=== PATIENT | male | born 1955 | race Caucasian/White ===

== ENCOUNTER 2018-04-12 13:13 | Emergency (ER) | payer OTHER ==
[2018-04-12 13:14] VITALS: BMI 25.8
[2018-04-12 13:24] VITALS: RESP 19
--- NOTE | 2018-04-12 14:00 | ED PDOC ---
Arrival/HPI - General Chief Complaint: Trauma Time Seen by Provider: 04/12/18 13:22 - History of Present Illness Narrative History of Present Illness (Text): 04/12/18 13:52 Patient is a 62 year old male with PMH of diabetes, hypertension, hyperlipidemia who presents to the Emergency department after a fall. Patient says he was walking outside and slipped on the sidewalk because it was wet from the rain. Patient fell onto his right side, hitting his head and injuring his eye. Patient says his eye was bleeding a lot before arrival although it is no longer bleeding. Patient denies loss of vision, headache, dizziness, and ringing in ears. He also denies pain in his neck, back, and extremities. PMH: diabetes, hypertension, hyperlipidemia Meds: Metformin, protonix, metoprolol, jardiance, ASA, atorvastatin Allergies: NKDA SH: former smoker, social alcohol use, denies elicit drug use Past Medical History - Past History Past History: Non-Contributing - Infectious Disease Hx of Infectious Diseases: None - Cardiac Hx Hypertension: Yes - Endocrine/Metabolic Hx Diabetes Mellitus Type 2: Yes - Psychiatric Hx Depression: No Hx Emotional Abuse: No Hx Physical Abuse: No Hx Substance Use: No - Past Surgical History Past Surgical History: No Previous - Surgical History Hx Cataract Extraction: Yes - Anesthesia Hx Anesthesia: Yes Hx Anesthesia Reactions: No Hx Malignant Hyperthermia: No - Suicidal Assessment Feels Threatened In Home Enviroment: No Family/Social History Family/Social History: Unknown Family HX Smoking Status: Never Smoked Hx Alcohol Use: Yes Frequency of alcohol use: Socially Hx Substance Use: No Allergies/Home Meds Allergies/Adverse Reactions: Allergies No Known Allergies Allergy (Verified 06/27/13 23:42) Home Medications: Home Meds Medication Instructions Recorded Confirmed Metformin HCl [Metformin] 1,000 mg PO BID 06/27/13 04/12/18 Review of Systems - Physician Review All systems were reviewed & negative as marked: Yes - Review of Systems Constitutional: Normal Eyes: Eye Pain (right, mild). absent: Vision Changes, Photophobia ENT: Normal. absent: Hearing Changes, Tinnitus, Epistaxis Respiratory: Normal. absent: SOB, Wheezing Cardiovascular: Normal. absent: Chest Pain, Palpitations, Syncope Gastrointestinal: Normal. absent: Abdominal Pain, Constipation, Diarrhea, Nausea, Vomiting Musculoskeletal: absent: Arthralgias, Back Pain, Neck Pain, Joint Swelling Skin: Laceration (1 cm, over right eye) Neurological: Normal. absent: Headache, Dizziness, Gait Changes, Speech Changes , Facial Droop, Disequilibrium Physical Exam Vital Signs Temp Pulse Resp BP Pulse Ox 04/12/18 13:15 98.8 F 95 H 19 129/87 98 Temperature: Afebrile Blood Pressure: Normal Pulse: Regular Respiratory Rate: Normal Appearance: Positive for: Well-Appearing, Non-Toxic, Comfortable Pain Distress: Mild Mental Status: Positive for: Alert and Oriented X 3 - Systems Exam Head: Present: Normocephalic, Tenderness (right eye), Swelling (right eye), Ecchymosis (mild over right eye), Laceration (1 cm, over the right eye) Pupils: Present: PERRL Extroacular Muscles: Present: EOMI. No: Entrapment Conjunctiva: Present: Other (subconjunctival hemorrhage of the right eye) Ears: Present: Normal Mouth: Present: Moist Mucous Membranes Nose (External): Present: Atraumatic Nose (Internal): Present: No Active Bleeding Neck: Present: Normal Range of Motion. No: MIDLINE TENDERNESS, Paraspinal Tenderness Respiratory/Chest: Present: Clear to Auscultation, Good Air Exchange. No: Respiratory Distress, Accessory Muscle Use Cardiovascular: Present: Regular Rate and Rhythm, Normal S1, S2. No: Murmurs Abdomen: Present: Normal Bowel Sounds. No: Tenderness, Distention, Peritoneal Signs Back: Present: Normal Inspection. No: Midline Tenderness, Paraspinal Tenderness , Pain with Leg Raise Upper Extremity: Present: Normal Inspection, Neurovascularly Intact. No: Cyanosis, Edema Lower Extremity: Present: Normal Inspection, Neurovascularly Intact. No: Edema Neurological: Present: GCS=15, CN II-XII Intact, Speech Normal Skin: Present: Warm, Dry. No: Rashes Psychiatric: Present: Alert, Oriented x 3, Normal Insight, Normal Concentration Medical Decision Making ED Course and Treatment: 04/12/18 14:08 Patient given toradol for pain and CT head with maxillofacial CT ordered 04/12/18 14:46 CT Head: Findings: No acute intracranial hemorrhage. Mild chronic white matter ischemic changes. . The questionable few scattered chronic bilateral basal nuclei lacunar type infarcts. Moderate volume loss. Right-sided sided orbital fractures with right-sided facial swelling an subcutaneous as well as orbital emphysema as detailed above. Maxillofacial CT: Fracture of the right lamina papyracea with collapse of several right-sided ethmoid air cells that are partially filled with soft tissue possibly representing hemorrhage. There is also small amount of herniation of orbital fat medially through the defect. Suspect minimally displaced fracture right lateral orbital wall. Right-sided facial soft tissue swelling including the periorbital, supraorbital and pre maxillary soft tissues. There is also some extension of the swelling over the right temporal region. Subcutaneous and orbital emphysema present. Globes intact . Patient is status post bilateral cataract surgery. There are no retrobulbar hemorrhages or collections so far as can be seen. Patient will need follow up with and opthalmologist and ENT. Patient cautioned not to blow nose as to avoid further emphysema. - RAD Interpretation Radiology Orders: 04/12/18 13:42 HEAD W/O CONTRAST [CT] Stat MAXILLOFACIAL W/O CONTRAST [CT] Stat - Medication Orders Current Medication Orders: Discontinued Medications Ketorolac Tromethamine (Toradol) 60 mg IM STAT STA Stop: 04/12/18 13:43 Last Admin: 04/12/18 13:52 Dose: 60 mg MAR Pain Assessment Document 04/12/18 13:52 GMI (Rec: 04/12/18 13:53 GMI [id number]) Pain Reassessment Is this a pain reassessment? Yes Sleep Is patient sleeping during reassessment? No Presence of Pain Presence of Pain Yes Pain Scale Used Pain Scale Used Numeric Location Left, Right or Bilateral Right Pain Location Body Site Eye Description Description Intermittent Intensity of Pain at present 5 Pain Behavior Facial Grimacing Alleviating Factors/Management Medication Techniques Alleviating Factors Ice IM Administration Charges Document 04/12/18 13:52 GMI (Rec: 04/12/18 13:53 GMI [id number]) Injection Site MAR Injection Site Right Deltoid Charges for Administration # of IM Administrations 1 - PA / SENIOR [employer] ADMINISTRATOR / Resident Statement / has reviewed & agrees with the documentation as recorded. / has examined the patient and agrees with the treatment plan. Disposition/Present on Arrival - Present on Arrival Any Indicators Present on Arrival: No History of DVT/PE: No History of Uncontrolled Diabetes: No Urinary Catheter: No History of Decub. Ulcer: No History Surgical Site Infection Following: None - Disposition Have Diagnosis and Disposition been Completed?: Yes Diagnosis: Orbital fracture, Orbital floor (blow-out) closed fracture Disposition: HOME/ ROUTINE Disposition Time: 15:10 Condition: STABLE Discharge Instructions (ExitCare): Skull and Facial Fractures Additional Instructions: Please follow up with your primary care provider in 1-2 days for further coordination of your care. You will need follow up with an pre school teacher and ENT. Please take Augmentin by mouth twice a day for 14 days. You may take percocet every 4 hours only as needed for severe pain. This occasionally causes nausea in some patients, which is why we have provided you with zofran and this can be taken every 6 hours as needed for nausea. Please return to the Emergency department if you experience any new or worsening symptoms. Prescriptions: Amoxicillin/Clavulanate [Augmentin 875 MG-125 MG] 1 tab PO BID 14 Days #28 tab Ondansetron HCl [Zofran] 4 mg PO Q6 PRN #10 tablet PRN Reason: Nausea/Vomiting oxyCODONE/Acetaminophen [Percocet 5/325 mg Tab] 1 tab PO Q4 PRN #20 tab PRN Reason: Pain, Severe (8-10) Referrals: Kenny Tong MD [Primary Care Provider] - Follow up with primary Twin Aj MD [Staff Provider] - Follow up with primary Isauro Scott DO [Staff Provider] - Follow up with primary Forms: [employer] (Kinyarwanda)
--- NOTE | 2018-04-12 14:40 | CT ---
PROCEDURE: CT scan brain dated 04/12/2018 HISTORY: Status post fall with trauma COMPARISON: Correlation made with concurrent CT scan of the maxillofacial skeleton. TECHNIQUE: Contiguous helical/ transaxial computed tomography images were obtained through the head/brain without intravenous contrast. Radiation dose: Total exam DLP = 856.54 mGy-cm. This CT exam was performed using one or more of the following dose reduction techniques: Automated exposure control, adjustment of the mA and/or kV according to patient size, and/or use of iterative reconstruction technique. . FINDINGS: HEMORRHAGE: No acute parenchymal, subarachnoid or extra-axial hemorrhage. BRAIN: Mild chronic periventricular white matter ischemic changes are present. The questionable few scattered chronic bilateral basal nuclei lacunar type infarcts. Moderate generalized volume loss. Vascular calcifications both carotid siphons. VENTRICLES: No obstructive hydrocephalus CALVARIUM: There are no acute calvarial fractures. There is a fracture of the right lamina papyracea with collapse of several right-sided ethmoid air cells that are partially filled with soft tissue possibly representing hemorrhage. There is also small amount of herniation of orbital fat medially through the defect. Right-sided facial soft tissue swelling including the periorbital, supraorbital and pre maxillary soft tissues. There is also some extension of the swelling over the right temporal region. Subcutaneous and orbital emphysema present. Globes intact . Patient is status post bilateral cataract surgery. There are no retrobulbar hemorrhages or collections so far as can be seen. PARANASAL SINUSES: As above. There is mild polypoid like mucosal thickening both maxillary antra. MASTOID AIR CELLS: Questionable incomplete pneumatization or partial opacification multiple right-sided inferior mastoid air cells. OTHER FINDINGS: No other findings. IMPRESSION: No acute intracranial hemorrhage. Mild chronic white matter ischemic changes. . The questionable few scattered chronic bilateral basal nuclei lacunar type infarcts. Moderate volume loss. Right-sided sided orbital fractures with right-sided facial swelling an subcutaneous as well as orbital emphysema as detailed above. .
--- NOTE | 2018-04-12 15:01 | CT ---
PROCEDURE: Maxillofacial skeleton dated 04/12/2018 HISTORY: Status post fall with trauma. COMPARISON: Comparison made with concurrent CT scan brain TECHNIQUE: Contiguous helical/transaxial CT images of the maxillofacial bones were obtained. Coronal and sagittal reformats were generated. Radiation dose: Total exam DLP = 673.47 mGy-cm. This CT exam was performed using one or more of the following dose reduction techniques: Automated exposure control, adjustment of the mA and/or kV according to patient size, and/or use of iterative reconstruction technique. . FINDINGS: There is a fracture of the right lamina papyracea with collapse of several right-sided ethmoid air cells that are partially filled with soft tissue possibly representing hemorrhage. There is also small amount of herniation of orbital fat medially through the defect. Suspect minimally displaced fracture right lateral orbital wall. Right-sided facial soft tissue swelling including the periorbital, supraorbital and pre maxillary soft tissues. There is also some extension of the swelling over the right temporal region. Subcutaneous and orbital emphysema present. Globes intact . Patient is status post bilateral cataract surgery. There are no retrobulbar hemorrhages or collections so far as can be seen. The remaining visualized paranasal sinuses are well-developed. No fluid levels seen to suggest acute hemorrhage. There is mild polypoid like mucosal thickening both maxillary antra. . Mild mucosal thickening also seen in a few left-sided ethmoid air cells. Note is made of a radicular cyst surrounding the roof of the right inferior central incisor tooth IMPRESSION: fracture of the right lamina papyracea with collapse of several right-sided ethmoid air cells that are partially filled with soft tissue possibly representing hemorrhage. There is also small amount of herniation of orbital fat medially through the defect. Suspect minimally displaced fracture right lateral orbital wall. Right-sided facial soft tissue swelling including the periorbital, supraorbital and pre maxillary soft tissues. There is also some extension of the swelling over the right temporal region. Subcutaneous and orbital emphysema present. Globes intact . Patient is status post bilateral cataract surgery. There are no retrobulbar hemorrhages or collections so far as can be seen.
[2018-04-12 15:49] VITALS: PULSE 85
[2018-04-12 15:52] VITALS: BP 124/74; TEMP 98.2; O2SAT 100
== END 2018-04-12 15:50 | disposition home or self-care (01) ==
LOC: ED 13:13
DX: S02.31XA Fracture of orbital floor, right side, initial encounter for closed fracture (principal); W19.XXXA Unspecified fall, initial encounter; E11.9 Type 2 diabetes mellitus without complications; E78.5 Hyperlipidemia, unspecified; I10 Essential (primary) hypertension; Z87.891 Personal history of nicotine dependence
CPT/HCPCS: 70450; 70486; 96372; 99284; J1885